=== PATIENT | female | born 1980 | race Caucasian/White ===

== ENCOUNTER → 2017-04-17 | Outpatient (CLI) | payer OTHER | LOC: LAB.R 08:00 | PROVIDERS: ATTEND Obstetrics & Gynecology | DX: N76.1 Subacute and chronic vaginitis (principal) | CPT/HCPCS: 81599; 87480; 87510; 87660 ==

== ENCOUNTER 2018-03-10 16:02 | Outpatient (CLI) | payer OTHER ==
[2018-03-10 16:21] LABS: BASOPHILS # (AUTO) 0.1 10^3/uL (0.0-0.1); BASOPHILS % (AUTO) 0.6 %; EOSINOPHILS # (AUTO) 0.2 10^3/uL (0.0-0.7); EOSINOPHILS % (AUTO) 2.6 %; HGB - HEMOGLOBIN 13.5 g/dL (12.0-16.0); LYMPHOCYTES # (AUTO) 2.3 10^3/uL (1.5-3.5); LYMPHOCYTES % (AUTO) 24.2 %; MEAN CORPUSCULAR HEMOGLOBIN 29.4 pg (27.0-31.0); MEAN CORPUSCULAR HGB CONC 33.5 g/dL (32.0-36.0); MEAN CORPUSCULAR VOLUME 87.7 fL (81.0-99.0); MONOCYTES # (AUTO) 0.8 10^3/uL (0.0-1.0); MONOCYTES % (AUTO) 8.6 %; PLT - PLATELET COUNT 301 10^3/uL (130-450); RED BLOOD COUNT 4.58 10^6/uL (4.20-5.40); RED CELL DISTRIBUTION WIDTH 12.7 % (12.0-15.0); WHITE BLOOD COUNT 9.3 x10^3/uL (4.8-10.8)
[2018-03-10 16:36] LABS: ALBUMIN 4.6 g/dL (3.2-5.5); ALBUMIN/GLOBULIN RATIO 1.3 (1.0-2.2); ALKALINE PHOSPHATASE 53 IU/L (42-121); ALT ALANINE AMINOTRANSFERASE 21 IU/L (10-60); AST ASPARTATE AMINOTRANSFERASE 18 IU/L (10-42); BILIRUBIN,TOTAL 0.4 mg/dL (0.2-1.0); BUN - BLOOD UREA NITROGEN 15 mg/dL (6-20); CALCIUM 9.6 mg/dL (8.5-10.3); CARBON DIOXIDE - CO2 28 mmol/L (21-32); CHLORIDE 101 mmol/L (101-111); CREATININE 0.6 mg/dL (0.4-1.0); GFR - MDRD 114 (>89); GLUCOSE 97 mg/dL (70-100); LIPASE 19 U/L (22-51); SODIUM 137 mmol/L (135-145); TOTAL PROTEIN 8.1 g/dL (6.7-8.2)
[2018-03-10 16:48] LABS: CRP - C-REACTIVE PROTEIN < 1.0 mg/dL (0-1.0)
[2018-03-10 17:18] LABS: HCG,QUALITATIVE BLOOD NEGATIVE
== END 2018-03-10 16:03 | disposition home or self-care (01) ==
LOC: LAB 16:02
PROVIDERS: ATTEND Physician Assistant Medical
DX: R10.13 Epigastric pain (principal)
CPT/HCPCS: 36415; 80053; 83690; 84703; 85025; 85651; 86140

== ENCOUNTER 2018-03-11 21:59 | Outpatient (CLI) | payer OTHER ==
--- NOTE | 2018-03-12 00:52 | Ultrasound Preliminary Report ---
Exam: US ABDOMEN COMPLETE IMPRESSION: 1. Prior cholecystectomy. 2. Moderate hepatic steatosis. At least mild hepatic enlargement. 3. No pathologic biliary ductal dilation. [facility] The call report notification system was initiated by Dr. Deon Soares at 00:48 hrs on 03/12/18. The above findings were discussed with SHIRIN Villanueva by Dr. Deon Soares at 00:51 hrs on . SITE ID: [id number]
--- NOTE | 2018-03-12 01:11 | Ultrasound Report ---
EXAM: ABDOMEN ULTRASOUND EXAM DATE: 03/11/2018 10:54 PM. CLINICAL HISTORY: Abdominal pain, epigastric. COMPARISON: CT 02/28/2014. TECHNIQUE: Real-time scanning was performed with static images obtained. FINDINGS: Liver: There is mild to moderate increased hepatic echogenicity. 18.3 cm. Main portal vein flow: Hepa topetal. Gallbladder: Surgically absent. Biliary System: Common bile duct measures 3.4 mm. No intrahepatic or extrahepatic ductal dilatation. Pancreas: Visualized portion is unremarkable. Kidneys: Right: 11.9 cm longitudinally. Normal. No contour-deforming mass, stones, or hydronephrosis. Left: 12.4 cm longitudinally. Normal. No contour-deforming mass, stones, or hydronephrosis. Spleen: 12.1 cm. Normal in size and echotexture. Aorta and Inferior Vena Cava: Unremarkable. Other: None. IMPRESSION: 1. Prior cholecystectomy. 2. Moderate hepatic steatosis. At least mild hepatic enlargement. 3. No pathologic biliary ductal dilation. [facility] The call report notification system was initiated by Dr. Deon Soares at 00:48 hrs on 03/12/18. The above findings were discussed with SHIRIN Villanueva by Dr. Deon Soares at 00:51 hrs on . Referring Provider Line: [phone] SITE ID: [id number]
== END 2018-03-11 22:00 | disposition home or self-care (01) ==
LOC: DI 21:59
PROVIDERS: ATTEND Physician Assistant Medical
DX: R10.13 Epigastric pain (principal); K76.0 Fatty (change of) liver, not elsewhere classified; Z90.49 Acquired absence of other specified parts of digestive tract
CPT/HCPCS: 76700

== ENCOUNTER 2018-03-14 06:50 | Outpatient (CLI) | payer OTHER ==
[2018-03-14] MEDS ORDERED: IOPAMIDOL-300 50 ML VIAL ONE (07:07)
[2018-03-14] MEDS ORDERED: IOPAMIDOL-300 100 ML VIAL ONE (07:07)
[2018-03-14] MEDS ORDERED: IOPAMIDOL-300 100 ML VIAL IVP ONE (08:25)
[2018-03-14] MEDS ORDERED: IOPAMIDOL-300 50 ML VIAL PO ONE (08:25)
--- NOTE | 2018-03-14 09:26 | CT Report ---
EXAM: CT ABDOMEN AND PELVIS EXAM DATE: 03/14/2018 08:25 AM. CLINICAL HISTORY: ABDOMINAL PAIN, EPIGASTRIC. COMPARISONS: Abdominal ultrasound 03/11/2018. CT abdomen/pelvis 02/28/2014.. TECHNIQUE: Routine helical CT imaging was performed through the abdomen and pelvis. IV contrast: 100 cc Isovue-300. Enteric contrast: Positive. Reconstructions: Coronal and sagittal. In accordance with CT protocol optimization, one or more of the following dose reduction techniques w ere utilized for this exam: automated exposure control, adjustment of mA and/or KV based on patient s ize, or use of iterative reconstructive technique. FINDINGS: Lung Bases: Unremarkable. Liver: Normal. No masses. Gallbladder/Bile Ducts: Cholecystectomy. No ductal enlargement. Spleen: Normal. Pancreas: Normal. Adrenal Glands: Normal. Kidneys: Normal. No masses or hydronephrosis. Peritoneal Cavity/Bowel: No free air or free fluid. Appendix is normal caliber; no periappendiceal in flammatory changes are evident. Pelvic Organs: IUD in the uterus. Adnexal structures are unremarkable. Urinary bladder is unremarkabl e. Vasculature: No aneurysms or other significant abnormality. Bones: No significant abnormality. Other: None. IMPRESSION: 1. No convincing acute abdominopelvic findings. 2. Cholecystectomy. 3. IUD. 4. Other findings as noted above. [facility] Referring Provider Line: [phone] SITE ID: [id number]
== END 2018-03-14 06:51 | disposition home or self-care (01) ==
LOC: DI 06:50
PROVIDERS: ATTEND Physician Assistant Medical
DX: R10.13 Epigastric pain (principal); R10.11 Right upper quadrant pain; R11.0 Nausea; Z90.49 Acquired absence of other specified parts of digestive tract
CPT/HCPCS: 74177; Q9967

== ENCOUNTER 2019-12-15 17:31 | Emergency (ER) | payer OTHER ==
[2019-12-15 17:53] VITALS: BP 130/97
== END 2019-12-15 19:20 | disposition left against medical advice (07) ==
LOC: ED 17:31
DX: Z53.21 Procedure and treatment not carried out due to patient leaving prior to being seen by health care provider (principal)

== ENCOUNTER 2022-07-24 19:56 | Outpatient (CLI) | payer OTHER | END 2022-07-24 19:57 | disposition EMS.NT | LOC: EMS 19:56 | DX: R00.0 Tachycardia, unspecified (principal); F41.9 Anxiety disorder, unspecified; R42 Dizziness and giddiness ==

== ENCOUNTER 2023-04-08 09:24 | Outpatient (CLI) | payer OTHER ==
--- NOTE | 2023-04-09 09:19 | Mammography Report ---
BILATERAL DIGITAL SCREENING MAMMOGRAM 3D/2D: 04/08/2023 CLINICAL: Baseline exam. Routine screening. No prior exams were available for comparison. Both breasts are heterogeneously dense, which may obscure small masses (category c / 51-75% glandular tissue). No significant masses, calcifications, or other findings are seen in either breast. IMPRESSION: NEGATIVE There is no mammographic evidence of malignancy. A 1 year screening mammogram is recommended. Based on the Tyrer Cuzick model (a risk assessment model) the patients lifetime risk is 15.0% and he r 10 year risk is 1.9%. According to the ACR, ACS, and NCCN guidelines, an annual breast MRI exam radha ng with mammogram is recommended if the patients lifetime risk is 20% or greater. This exam was interpreted at Station ID: [id number]. NOTE: For mammograms, a report in lay terms will be sent to the patient. Approximately 15% of breast malignancies will not be visualized mammographically. In the management of a palpable breast mass, a negative mammogram must not discourage biopsy of a clinically suspicious lesion. Electronically Signed By: Jostin hamilton/enrrique:04/08/2023 10:48:47 letter sent: No_Letter ACR BI-RADS Category 1: Negative 3341F PARENCHYMAL PATTERN: (D) - The breast(s) demonstrate(s) heterogeneously dense fibroglandular parsharri atwood. BI-RADS CATEGORY: (1) - 1 Mammogram [id number] 1 year screening LATERALITY: (B)
== END 2023-04-08 09:25 | disposition home or self-care (01) ==
LOC: DI.N 09:24
PROVIDERS: ATTEND Student in an Organized Health Care Education/Training Program
DX: Z12.31 Encounter for screening mammogram for malignant neoplasm of breast (principal)

== ENCOUNTER 2023-12-31 12:15 | Outpatient (CLI) | payer OTHER | END 2023-12-31 12:30 | disposition home or self-care (01) | LOC: LAB.N 12:15 | PROVIDERS: ATTEND Emergency Medicine | DX: L73.2 Hidradenitis suppurativa (principal) | CPT/HCPCS: 87070; 87205 ==